=== PATIENT | male | born 1975 | race American Indian/Alaskan Native ===

== ENCOUNTER 2017-10-11 15:08 | Emergency (ER) | payer SELFPAY ==
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
[2017-10-11] MEDS ORDERED: NORCO 5/325 PO ONE (21:21)
[2017-10-11] MEDS ORDERED: FLEXERIL PO ONE (21:21)
[2017-10-11] MEDS ORDERED: DELTASONE PO ONE (21:21)
[2017-10-11 22:25] VITALS: BP 158/96
== END 2017-10-11 22:26 | disposition home or self-care (01) ==
LOC: ED 15:08
DX: M54.2 Cervicalgia (principal); M54.5 Low back pain; I10 Essential (primary) hypertension
CPT/HCPCS: 99282; J7512

== ENCOUNTER 2018-09-24 05:49 | Inpatient (IN) | payer SELFPAY ==
[2018-09-24] MEDS ORDERED: MORPHINE IV ONE (06:17)
[2018-09-24] MEDS ORDERED: NACL 0.9% 1000 ML 1,000 ML IV ONE ×3 (06:17→09:09)
[2018-09-24] MEDS ORDERED: ZOFRAN IV ONE (06:17)
--- NOTE | 2018-09-24 06:26 | Emergency Department Report ---
ED Abdominal Pain HPI - General Chief Complaint: Abdominal Pain Stated Complaint: ABDOMINAL PAIN Time Seen by Provider: 09/24/18 06:00 Source: patient, EMS Mode of arrival: Stretcher Limitations: No Limitations - History of Present Illness Initial Comments: 43-year-old male presents with complaint of diffuse abdominal pain since yesterday. Patient reports he was using cocaine and heroin just prior to onset of the pain. Patient reports associated nausea, vomiting, diarrhea as well. Patient denies fever. MD Complaint: abdominal pain -: Last night Location: diffuse Radiation: none Migration to: no migration Severity: moderate Quality: cramping, sharp Consistency: constant Improves With: nothing Worsens With: nothing Context: other (reports recent drug use) Associated Symptoms: nausea, vomiting, diarrhea. denies: fever - Related Data Home Medications Medication Instructions Recorded Confirmed Last Taken No Known Home Medications [No 09/24/18 09/24/18 Unknown Reported Home Medications] Allergies Allergy/AdvReac Type Severity Reaction Status Date / Time No Known Allergies Allergy Unverified 09/08/14 20:05 ED Review of Systems ROS: Stated complaint: ABDOMINAL PAIN Other details as noted in HPI Comment: All other systems reviewed and negative Constitutional: denies: fever Cardiovascular: denies: chest pain Gastrointestinal: abdominal pain, nausea, vomiting, diarrhea ED Past Medical Hx - Past Medical History Previous Medical History?: Yes Hx Hypertension: Yes Additional medical history: DRUG USE -COCCAINE & HEROINE - Surgical History Past Surgical History?: No - Social History Smoking Status: Current Every Day Smoker Substance Use Type: Cocaine, Heroin - Medications Home Medications: Home Medications Medication Instructions Recorded Confirmed Last Taken Type No Known Home Medications [No 09/24/18 09/24/18 Unknown History Reported Home Medications] ED Physical Exam - General Limitations: No Limitations General appearance: alert, in no apparent distress - Head Head exam: Present: atraumatic, normocephalic - Eye Eye exam: Present: normal appearance - ENT ENT exam: Present: mucous membranes moist - Neck Neck exam: Present: normal inspection - Respiratory Respiratory exam: Present: normal lung sounds bilaterally. Absent: respiratory distress - Cardiovascular Cardiovascular Exam: Present: regular rate, normal rhythm - GI/Abdominal GI/Abdominal exam: Present: soft, tenderness (moderate, diffuse). Absent: distended - Extremities Exam Extremities exam: Present: normal inspection - Neurological Exam Neurological exam: Present: alert, oriented X3 - Psychiatric Psychiatric exam: Present: normal affect, normal mood - Skin Skin exam: Present: warm, dry, intact, normal color ED Course Vital Signs 09/24/18 09/24/18 09/24/18 05:55 05:58 06:00 Temperature 96.9 F L Pulse Rate 81 77 76 Respiratory 16 10 L 10 L Rate Blood Pressure 177/103 164/102 Blood Pressure [Left] O2 Sat by Pulse 100 100 100 Oximetry 09/24/18 09/24/18 09/24/18 06:15 06:30 06:55 Temperature Pulse Rate 70 77 75 Respiratory 8 L 8 L Rate Blood Pressure 162/91 140/95 164/102 Blood Pressure [Left] O2 Sat by Pulse 93 96 Oximetry 09/24/18 09/24/18 09/24/18 07:00 07:10 07:20 Temperature Pulse Rate 75 78 76 Respiratory 6 L 7 L 6 L Rate Blood Pressure 130/81 130/81 129/85 Blood Pressure [Left] O2 Sat by Pulse 99 99 100 Oximetry 09/24/18 09/24/18 09/24/18 07:30 07:33 08:03 Temperature Pulse Rate 74 Respiratory 8 L 16 Rate Blood Pressure 128/85 144/87 Blood Pressure [Left] O2 Sat by Pulse 97 Oximetry 09/24/18 09/24/18 09/24/18 08:10 08:20 08:30 Temperature Pulse Rate Respiratory Rate Blood Pressure 144/87 122/90 142/90 Blood Pressure [Left] O2 Sat by Pulse 98 99 99 Oximetry 09/24/18 09/24/18 09/24/18 08:40 08:50 09:00 Temperature Pulse Rate Respiratory Rate Blood Pressure 128/85 117/78 123/96 Blood Pressure [Left] O2 Sat by Pulse 98 99 95 Oximetry 09/24/18 09/24/18 09/24/18 09:10 09:20 09:30 Temperature Pulse Rate Respiratory Rate Blood Pressure 142/90 142/90 143/94 Blood Pressure [Left] O2 Sat by Pulse 100 94 95 Oximetry 09/24/18 09/24/18 09/24/18 09:40 09:45 09:50 Temperature 98.5 F Pulse Rate 65 Respiratory 18 Rate Blood Pressure 117/78 135/90 Blood Pressure 135/90 [Left] O2 Sat by Pulse 94 99 99 Oximetry 09/24/18 10:00 Temperature Pulse Rate Respiratory Rate Blood Pressure 140/91 Blood Pressure [Left] O2 Sat by Pulse 97 Oximetry - Consultations Consultation #1: 09/24/18 09:07 Dr Coatse at bedside. No need to take pt to OR emergently. States willl f/u on CT w/ oral contrast. Wants 2L more NS. ED Medical Decision Making - Lab Data Result diagrams: 09/24/18 06:43 09/24/18 09:11 - EKG Data -: EKG Interpreted by Me EKG shows normal: sinus rhythm, axis, intervals, QRS complexes, ST-T waves Rate: normal - EKG Data Interpretation: nonspecific ST-T wave leslie - Radiology Data Radiology results: report reviewed, image reviewed - Medical Decision Making 43-year-old male with abdominal pain, nausea or vomiting after using IV heroin and cocaine. Vital signs unremarkable. Labs normal except for hypokalemia, which was replaced with PO potassium. CT scan suspicious for free fluid in the abdomen, however no free air or obvious perforation noted. Spoke with Dr. Coates, who came to evaluate patient. Would like repeat CT with PO contrast. This patient does not need to go to the OR emergently. Requests 2 additional liters of normal saline boluses and admitted to hospitalist service. Patient is much improved since he presented to ED. Already been given 1 L bolus of IV fluid, 4 mg of morphine and 4 mg of Zofran. Spoke with hospitalist, pt to be admitted to Dr Taylor. - Differential Diagnosis gastritis, ischemic bowel, perforation Critical care attestation.: If time is entered above; I have spent that time in minutes in the direct care of this critically ill patient, excluding procedure time. ED Disposition Clinical Impression: Hypokalemia, Drug abuse, Ascites Abdominal pain Qualifiers: Abdominal location: generalized Qualified Code(s): R10.84 - Generalized abdominal pain Disposition: OP ADMIT IP TO THIS HOSP Is pt being admited?: Yes Condition: Stable Time of Disposition: 09:00
[2018-09-24 07:08] LABS: Basophils % (Auto) 0.2 % (0.0-1.8); Eosinophils # (Auto) 0.1 K/mm3 (0.0-0.4); Eosinophils % (Auto) 0.9 % (0.0-4.3); Hematocrit 47.8 % (35.5-45.6); Hemoglobin 15.4 gm/dl (11.8-15.2); Lymphocytes # (Auto) 1.6 K/mm3 (1.2-5.4); Lymphocytes % (Auto) 18.1 % (13.4-35.0); Mean Corpuscular HGB Conc 32 % (32-34); Mean Corpuscular Volume 80 fl (84-94); Monocytes # (Auto) 0.7 K/mm3 (0.0-0.8); Monocytes % (Auto) 8.3 % (0.0-7.3); Platelet Count 289 K/mm3 (140-440); Red Blood Count 5.99 M/mm3 (3.65-5.03); Red Cell Distribution Width 14.3 % (13.2-15.2)
[2018-09-24 07:13] LABS: Alanine Aminotransferase 17 units/L (7-56); Albumin 3.9 g/dL (3.9-5); BUN/Creatinine Ratio 16; Blood Urea Nitrogen 11 mg/dL (9-20); Calcium 8.9 mg/dL (8.4-10.2); Hemolysis Index 13; Lipase 12 units/L (13-60)
[2018-09-24 07:15] LABS: Mean Corpuscular Hemoglobin 26 pg (28-32)
[2018-09-24] MEDS ORDERED: K-DUR PO ONE (07:31)
--- NOTE | 2018-09-24 08:22 | Cat Scan Report ---
CT ABDOMEN PELVIS WITH CONTRAST: HISTORY: abdominal pain. COMPARISON: None. TECHNIQUE: Helical CT in 1.25mm intervals following IV contrast. Sagittal and coronal reconstructions. FINDINGS: Lung bases: Normal. Liver: Normal. Biliary system: Normal. Pancreas: Normal. Spleen: Normal. Kidneys/ureters/bladder: Normal. Adrenal glands: Normal. Aorta: Normal. Intestines: There is no oral contrast which limits evaluation of the GI system. There is a small focal abnormality measuring 1.9 cm medial to the descending duodenum on image 73, series 2. The significance of this is unclear but it may represent a focal ulceration or possibly a duodenal diverticulum. I cannot entirely exclude a penetrating ulcer. There is no evidence for large free air or bowel obstruction. Appendix: Normal. Ascites: There is small to medium fluid throughout the abdomen. Small fluid is identified adjacent to the liver, spleen, paracolic gutters and pelvis. The ascites measures approximately 20 Hounsfield units. Adenopathy: None. Musculoskeletal: Moderate degenerative disc disease at L5-S1. No fracture or suspicious bony lesion. IMPRESSION: Small to medium free fluid is identified throughout the abdomen. Slightly abnormal appearance of the duodenum as outlined above. Please correlate with the patient's clinical presentation. These findings were discussed with Dr. Tejeda at 0815 hours.
--- NOTE | 2018-09-24 09:08 | History and Physical Report ---
History of Present Illness Date of examination: 09/24/18 Date of admission: 09/24/18 Chief complaint: Abdominal pain/nausea/vomiting History of present illness: 43-year-old male with significant past medical history of hypertension not on any medications , substance abuse tobacco cocaine heroine , presented to the emergency room with abdominal pain since yesterday associated with nausea vomiting , reports that symptoms started after using cocaine and heroin. No history of consuming any new foods, no history of travel, no fever No similar sharp symptoms since the family members. Denies hematemesis or melena, no GI problems in the past Initial workup is consistent with severe hypokalemia CT abdomen and pelvis fluid in the abdomen ,no acute abnormalities noted, Past History Past Medical History: hypertension Past Surgical History: No surgical history Social history: smoking, other (cocaine, Heroin). denies: alcohol abuse Family history: hypertension Medications and Allergies Allergies Allergy/AdvReac Type Severity Reaction Status Date / Time No Known Allergies Allergy Unverified 09/08/14 20:05 Home Medications Medication Instructions Recorded Confirmed Last Taken Type No Known Home Medications [No 09/24/18 09/24/18 Unknown History Reported Home Medications] Review of Systems Constitutional: no weight loss, no weight gain Cardiovascular: no chest pain, no orthopnea Respiratory: no cough, no shortness of breath Gastrointestinal: abdominal pain, nausea, vomiting, no diarrhea, no constipation Genitourinary Male: no dysuria, no hematuria Musculoskeletal: no neck stiffness, no myalgias Integumentary: no rash, no lesions Neurological: no weakness, no parathesias Psychiatric: no anxiety, no depression Endocrine: no cold intolerance, no heat intolerance Hematologic/Lymphatic: no easy bruising, no easy bleeding Allergic/Immunologic: no urticaria, no allergic rhinitis Exam - Constitutional Vitals: Temp Pulse Resp BP Pulse Ox 96.9 F L 77 16 140/95 96 09/24/18 05:55 09/24/18 06:30 09/24/18 07:33 09/24/18 06:30 09/24/18 06:30 General appearance: Present: no acute distress, well-nourished - EENT Eyes: Present: PERRL, EOM intact - Neck Neck: Present: supple, normal ROM - Respiratory Respiratory effort: normal Respiratory: bilateral: diminished, negative: rales, rhonchi, wheezing - Cardiovascular Rhythm: regular Heart Sounds: Present: S1 & S2 - Extremities Extremities: no ischemia, No edema - Abdominal General gastrointestinal: Present: soft, non-tender, non-distended, normal bowel sounds - Integumentary Integumentary: Present: clear, warm - Musculoskeletal Musculoskeletal: strength equal bilaterally - Psychiatric Psychiatric: appropriate mood/affect, cooperative - Neurologic Neurologic: CNII-XII intact, moves all extremities Results - Labs CBC & Chem 7: 09/24/18 06:43 09/24/18 09:11 Labs: Abnormal lab results 09/24/18 09/24/18 Range/Units 06:37 06:43 RBC 5.99 H (3.65-5.03) M/mm3 Hgb 15.4 H (11.8-15.2) gm/dl Hct 47.8 H (35.5-45.6) % MCV 80 L (84-94) fl MCH 26 L (28-32) pg [place] % (Auto) 8.3 H (0.0-7.3) % Seg Neutrophils % 72.5 H (40.0-70.0) % Sodium 136 L (137-145) mmol/L Potassium 2.9 L* (3.6-5.0) mmol/L Chloride 93.2 L (98-107) mmol/L Creatinine 0.7 L (0.8-1.5) mg/dL Glucose 133 H (75-100) mg/dL Lipase 12 L (13-60) units/L Assessment and Plan --Abdominal pain; with nausea and vomiting CT abdomen no acute abnormalities noted Symptomatic management, nothing by mouth, IV fluids Antiemetics, pain medications Surgery already seen the patient, CT abdomen and pelvis with contrast --Severe hypokalemia; replaced per protocol Follow electrolytes, check magnesium --Ongoing tobacco use; smoking cessation Nicotine patch as needed --Substance abuse; cocaine.Heroin Advised to quit recreational drug use -- DVT: prophylaxis SCDs; Monitor the patient and adjust management as needed Plan of Care reviewed with the patient and his nurse
--- NOTE | 2018-09-24 09:27 | Consultation ---
History of Present Illness Consult date: 09/24/18 Reason for consult: abdominal pain Requesting physician: LAVONNE TEJEDA Chief complaint: abdominal pain - History of present illness History of present illness: 43yo M with a history of heroin and cocaine abuse presents to the emergency room with an acute onset of abdominal pain since last night after using heroin and cocaine. He reports this is the exact same situation had about a year ago when he went to [facility] for help. He did not stay for the complete evaluation. Once his pain was under control, he left against medical advice. He reports this is the exact same situation as last year. He has had nausea and vomiting. Has had diarrhea. Denies any hematemesis, bright red blood per rectum, melena, black stools, coffee ground emesis. Denies any history of heartburn or reflux. His pain is better now. His nausea has resolved. He is thirsty and would like to eat. Denies any back pain or difficulty breathing. Past History Past Medical History: hypertension (does not take any meds) Past Surgical History: No surgical history Social history: smoking (1ppd), IV drug use, other (cocaine and heroin). denies: alcohol abuse, prescription drug abuse Family history: no significant family history Medications and Allergies Allergies Allergy/AdvReac Type Severity Reaction Status Date / Time No Known Allergies Allergy Unverified 09/08/14 20:05 Home Medications Medication Instructions Recorded Confirmed Last Taken Type No Known Home Medications [No 09/24/18 09/24/18 Unknown History Reported Home Medications] Active Meds: Active Medications Famotidine (Pepcid) 20 mg IV BID CECIL Hydralazine HCl (Apresoline) 10 mg IV Q4HR PRN PRN Reason: Hypertension Sodium Chloride (Nacl 0.9% 1000 Ml) 1,000 mls @ 125 mls/hr IV DIRECT CECIL Sodium Chloride (Nacl 0.9% 1000 Ml) 1,000 mls @ 999 mls/hr IV BOLUS ONE Stop: 09/24/18 10:08 Sodium Chloride (Nacl 0.9% 1000 Ml) 1,000 mls @ 999 mls/hr IV BOLUS ONE Stop: 09/24/18 10:09 Morphine Sulfate (Morphine) 2 mg IV Q4H PRN PRN Reason: Pain, Moderate (4-6) Nicotine (Habitrol) 14 mg TD QDAY CECIL Review of Systems - Constitutional no fever, no chills, no sweats, no chronic headaches, no chronic pain - Cardiovascular no chest pain, no rapid/irregular heart beat, no shortness of breath - Respiratory no cough - Gastrointestinal abdominal pain, nausea, vomiting, diarrhea, no hematemesis, no coffee ground emesis, no BRBPR, no melena, no hematochezia, no heartburn, no dyspepsia/bloating - Genitourinary no flank pain - Muskuloskeletal no low back pain - Integumentary no sores, no wounds Exam Vital Signs Temp Pulse Resp BP Pulse Ox 96.9 F L 81 16 177/103 100 09/24/18 05:55 09/24/18 05:55 09/24/18 05:55 09/24/18 05:55 09/24/18 05:55 - General physical appearance Positive: no distress, no pain, other (Able to raise head up without difficulty. Calm. Does not appear ill) - Eyes Positive: normal occular movement. Negative: icteric - Neck Positive: trachea midline - Respiratory Positive: normal expansion, normal respiratory effort, clear to auscultation - Cardiovascular Rhythm: regular - Extremities Extremities: No edema, normal temperature, normal color - Abdomen Abdomen: Present: soft, bowel sounds normal, other (no pelvic shake tenderness). Absent: tender, distended, masses, rebound, guarding, rigid, wound, surgical scars Hernia: none - Integumentary no rash, no growths, no abnormal pigmentation - Neurologic Neurologic: alert and oriented to time, place and person, motor strength and sensation are grossly intact - Psychiatric Psychiatric: appropriate mood/affect, intact judgment & insight Results - Labs 09/24/18 06:43 09/24/18 06:37 Abnormal lab results 09/24/18 09/24/18 Range/Units 06:37 06:43 RBC 5.99 H (3.65-5.03) M/mm3 Hgb 15.4 H (11.8-15.2) gm/dl Hct 47.8 H (35.5-45.6) % MCV 80 L (84-94) fl MCH 26 L (28-32) pg [place] % (Auto) 8.3 H (0.0-7.3) % Seg Neutrophils % 72.5 H (40.0-70.0) % Sodium 136 L (137-145) mmol/L Potassium 2.9 L* (3.6-5.0) mmol/L Chloride 93.2 L (98-107) mmol/L Creatinine 0.7 L (0.8-1.5) mg/dL Glucose 133 H (75-100) mg/dL Lipase 12 L (13-60) units/L Diabetes panel 09/24/18 Range/Units 06:37 Sodium 136 L (137-145) mmol/L Potassium 2.9 L* (3.6-5.0) mmol/L Chloride 93.2 L (98-107) mmol/L Carbon Dioxide 29 (22-30) mmol/L BUN 11 (9-20) mg/dL Creatinine 0.7 L (0.8-1.5) mg/dL Glucose 133 H (75-100) mg/dL Calcium 8.9 (8.4-10.2) mg/dL AST 20 (5-40) units/L ALT 17 (7-56) units/L Alkaline Phosphatase 51 (35-129) units/L Total Protein 6.9 (6.3-8.2) g/dL Albumin 3.9 (3.9-5) g/dL Calcium panel 09/24/18 Range/Units 06:37 Calcium 8.9 (8.4-10.2) mg/dL Albumin 3.9 (3.9-5) g/dL Pituitary panel 09/24/18 Range/Units 06:37 Sodium 136 L (137-145) mmol/L Potassium 2.9 L* (3.6-5.0) mmol/L Chloride 93.2 L (98-107) mmol/L Carbon Dioxide 29 (22-30) mmol/L BUN 11 (9-20) mg/dL Creatinine 0.7 L (0.8-1.5) mg/dL Glucose 133 H (75-100) mg/dL Calcium 8.9 (8.4-10.2) mg/dL Adrenal panel 09/24/18 Range/Units 06:37 Sodium 136 L (137-145) mmol/L Potassium 2.9 L* (3.6-5.0) mmol/L Chloride 93.2 L (98-107) mmol/L Carbon Dioxide 29 (22-30) mmol/L BUN 11 (9-20) mg/dL Creatinine 0.7 L (0.8-1.5) mg/dL Glucose 133 H (75-100) mg/dL Calcium 8.9 (8.4-10.2) mg/dL Total Bilirubin 0.60 (0.1-1.2) mg/dL AST 20 (5-40) units/L ALT 17 (7-56) units/L Alkaline Phosphatase 51 (35-129) units/L Total Protein 6.9 (6.3-8.2) g/dL Albumin 3.9 (3.9-5) g/dL - Imaging CT scan - abdomen: report reviewed, image reviewed CT scan - pelvis: report reviewed, image reviewed Assessment and Plan - Patient Problems (1) Abdominal pain Current Visit: Yes Status: Acute Qualifiers: Abdominal location: generalized Qualified Code(s): R10.84 - Generalized abdominal pain Plan to address problem: Pt stable. Patient does not appear acutely ill. He does not have an acute abdomen. He reports that he is getting better. Dr. Tejeda in the emergency department also agreed that patient looks better since arrival. Based on the report of the CAT scan, I think it would be prudent to repeat CT scan with oral contrast. Despite the report of some free fluid with [place] units of 20, his abdominal exam is not consistent with blood in the abdomen. I think he may have had an acute reaction to the heroin and cocaine like one year ago. He is also very dehydrated. I have asked Dr. Tejeda to give him another 2 L of saline. No need for urgent operation at this moment. Rec: 1) repeat CT with oral contrast 2) keep NPO for now until CT done and reassessment later this morning 3) Rehydrate Will follow along. Please call with questions. time=45min
[2018-09-24] MEDS: PEPCID IV SCH ×2 (09:36→21:07)
[2018-09-24] MEDS: HABITROL TD SCH (11:37)
[2018-09-24] MEDS: MORPHINE IV PRN ×2 (12:37→20:08)
--- NOTE | 2018-09-24 14:55 | Cat Scan Report ---
FINAL REPORT EXAM: CT ABDOMEN PELVIS WO CON HISTORY: abnormal CT, abdominal pain TECHNIQUE: Axial images were performed from the lung bases to the pubic symphysis. Multiplanar refor mats are performed on the acquisition scanner. Total exam DLP 469.12 mGy-cm Comparison: Earlier same day at 7:36 a.m. reporting small to medium ascites and irregularity of the medial duodenum, possibly an ulcer or diverticulum image 73 series 2 measuring 1.9 centimeters FINDINGS: Oral contrast was administered and images were obtained at 12 o'clock. Mild basal atelectasis. The IV contrast is present in the renal collecting system and urinary bladder. Previously identified air and debris level medial to the duodenum is suboptimally visualized on the c urrent exam due to lack of IV and oral contrast to gather. There is an air bubble medial to the duode num a with mild motion artifact. Review of the previous exam with the current exam is suggestive of a debris-filled duodenal diverticulum with no inflammation around it. There is a lack of abdominal fat in the peritoneum to distinguish the organs. Contrast is present to the rectum. Previous exam demonstrated fluid filled mildly hyperemic rectum and hyperemic slightly th ick-walled small bowel. Normal appearance of the liver. Current Jeanette the small bowel is not distended with contrast proximally but is distended distally. There is again noted mild ascites. No free air. No evidence for bowel obstruction. The prostate is mildly enlarged. There is lumbosacral junction degenerative disc disease. IMPRESSION: Oral contrasted images were performed since this morning's exam to evaluate for air and debris level medial to the duodenum. 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 Persistent ascites. Previous exam is suggestive of inflammation of the proximal small bowel and possibly the rectum. Cons ider inflammatory bowel disease. No pneumatosis or free air. Limited information on the current exam.
--- NOTE | 2018-09-24 15:02 | Progress Note ---
Assessment and Plan - Patient Problems (1) Abdominal pain Current Visit: Yes Status: Acute Qualifiers: Abdominal location: generalized Qualified Code(s): R10.84 - Generalized abdominal pain Plan to address problem: Pt stable. Vital signs remain stable. Clinically patient looks a little better than this morning. Abdomen remains benign. I reviewed the repeat CT scan in detail with Dr. Fried. There is a question of a small abnormality near what we presume to be a duodenal diverticulum. There are no clear signs of any inflammatory change. There is no obvious leakage of contrast. I discussed this with the patient in great detail. My concern that even though he looks well and his labs don't suggest any abnormality, I still have this abnormality on CT scan. Patient is very hungry and wants to eat. As a compromise, especially in light of the fact that he looks better, his abdomen is benign, his vital signs are normal, etc., I will order a clear liquid diet with a few crackers. If the labs and exam remain normal tomorrow, I will advance the diet. If there's any cause for concern, I will order an upper G.I. study. This was the recommendation from Dr. Fried. All this was also discussed with Dr. Taylor. Will follow along. Please call with questions. time=10min Subjective Date of service: 09/24/18 Patient Reports: Positive: feels better, pain is less, diarrhea (after drinking contrast). Negative: nausea, vomiting Objective Vital Signs - 12hr 09/24/18 09/24/18 09/24/18 05:55 05:58 06:00 Temperature 96.9 F L Pulse Rate 81 77 76 Respiratory 16 10 L 10 L Rate Blood Pressure 177/103 164/102 Blood Pressure [Left] O2 Sat by Pulse 100 100 100 Oximetry 09/24/18 09/24/18 09/24/18 06:15 06:30 06:55 Temperature Pulse Rate 70 77 75 Respiratory 8 L 8 L Rate Blood Pressure 162/91 140/95 164/102 Blood Pressure [Left] O2 Sat by Pulse 93 96 Oximetry 09/24/18 09/24/18 09/24/18 07:00 07:10 07:20 Temperature Pulse Rate 75 78 76 Respiratory 6 L 7 L 6 L Rate Blood Pressure 130/81 130/81 129/85 Blood Pressure [Left] O2 Sat by Pulse 99 99 100 Oximetry 09/24/18 09/24/18 09/24/18 07:30 07:33 08:03 Temperature Pulse Rate 74 Respiratory 8 L 16 Rate Blood Pressure 128/85 144/87 Blood Pressure [Left] O2 Sat by Pulse 97 Oximetry 09/24/18 09/24/18 09/24/18 08:10 08:20 08:30 Temperature Pulse Rate Respiratory Rate Blood Pressure 144/87 122/90 142/90 Blood Pressure [Left] O2 Sat by Pulse 98 99 99 Oximetry 09/24/18 09/24/18 09/24/18 08:40 08:50 09:00 Temperature Pulse Rate Respiratory Rate Blood Pressure 128/85 117/78 123/96 Blood Pressure [Left] O2 Sat by Pulse 98 99 95 Oximetry 09/24/18 09/24/18 09/24/18 09:10 09:20 09:30 Temperature Pulse Rate Respiratory Rate Blood Pressure 142/90 142/90 143/94 Blood Pressure [Left] O2 Sat by Pulse 100 94 95 Oximetry 09/24/18 09/24/18 09/24/18 09:40 09:45 09:50 Temperature 98.5 F Pulse Rate 65 Respiratory 18 Rate Blood Pressure 117/78 135/90 Blood Pressure 135/90 [Left] O2 Sat by Pulse 94 99 99 Oximetry 09/24/18 09/24/18 10:00 12:37 Temperature 98.1 F Pulse Rate 67 Respiratory 16 Rate Blood Pressure 140/91 116/81 Blood Pressure [Left] O2 Sat by Pulse 97 100 Oximetry - General physical appearance no distress, no pain, other (looks better) - Respiratory normal expansion, normal respiratory effort - Abdomen soft, not tender, bowel sounds normal, not distended, not rebound, not guarding, not rigid - Integumentary no rash, no growths, no abnormal pigmentation - Psychiatric oriented to time, oriented to person, oriented to place, speech is normal, memory intact - Labs 09/24/18 06:43 09/24/18 09:11 Diabetes panel 09/24/18 09/24/18 Range/Units 06:37 09:11 Sodium 136 L (137-145) mmol/L Potassium 2.9 L* 3.7 D (3.6-5.0) mmol/L Chloride 93.2 L (98-107) mmol/L Carbon Dioxide 29 (22-30) mmol/L BUN 11 (9-20) mg/dL Creatinine 0.7 L (0.8-1.5) mg/dL Glucose 133 H (75-100) mg/dL Calcium 8.9 (8.4-10.2) mg/dL AST 20 (5-40) units/L ALT 17 (7-56) units/L Alkaline Phosphatase 51 (35-129) units/L Total Protein 6.9 (6.3-8.2) g/dL Albumin 3.9 (3.9-5) g/dL Calcium panel 09/24/18 Range/Units 06:37 Calcium 8.9 (8.4-10.2) mg/dL Albumin 3.9 (3.9-5) g/dL Pituitary panel 09/24/18 09/24/18 Range/Units 06:37 09:11 Sodium 136 L (137-145) mmol/L Potassium 2.9 L* 3.7 D (3.6-5.0) mmol/L Chloride 93.2 L (98-107) mmol/L Carbon Dioxide 29 (22-30) mmol/L BUN 11 (9-20) mg/dL Creatinine 0.7 L (0.8-1.5) mg/dL Glucose 133 H (75-100) mg/dL Calcium 8.9 (8.4-10.2) mg/dL Adrenal panel 09/24/18 09/24/18 Range/Units 06:37 09:11 Sodium 136 L (137-145) mmol/L Potassium 2.9 L* 3.7 D (3.6-5.0) mmol/L Chloride 93.2 L (98-107) mmol/L Carbon Dioxide 29 (22-30) mmol/L BUN 11 (9-20) mg/dL Creatinine 0.7 L (0.8-1.5) mg/dL Glucose 133 H (75-100) mg/dL Calcium 8.9 (8.4-10.2) mg/dL Total Bilirubin 0.60 (0.1-1.2) mg/dL AST 20 (5-40) units/L ALT 17 (7-56) units/L Alkaline Phosphatase 51 (35-129) units/L Total Protein 6.9 (6.3-8.2) g/dL Albumin 3.9 (3.9-5) g/dL
[2018-09-24] MEDS: NACL 0.9% 1000 ML 1,000 ML IV SCH (16:21)
[2018-09-25] MEDS: MORPHINE IV PRN ×4 (00:42→13:13)
[2018-09-25] MEDS: NACL 0.9% 1000 ML 1,000 ML IV SCH (05:08)
[2018-09-25 05:55] LABS: Basophils % (Auto) 0.2 % (0.0-1.8); Eosinophils # (Auto) 0.4 K/mm3 (0.0-0.4); Hematocrit 37.9 % (35.5-45.6); Hemoglobin 12.5 gm/dl (11.8-15.2); Lymphocytes # (Auto) 2.7 K/mm3 (1.2-5.4); Lymphocytes % (Auto) 44.5 % (13.4-35.0); Mean Corpuscular HGB Conc 33 % (32-34); Mean Corpuscular Hemoglobin 26 pg (28-32); Mean Corpuscular Volume 80 fl (84-94); Monocytes # (Auto) 0.5 K/mm3 (0.0-0.8); Monocytes % (Auto) 7.9 % (0.0-7.3); Platelet Count 221 K/mm3 (140-440); Red Blood Count 4.75 M/mm3 (3.65-5.03); Red Cell Distribution Width 14.3 % (13.2-15.2)
[2018-09-25 06:18] LABS: Alanine Aminotransferase 15 units/L (7-56); Albumin 3.3 g/dL (3.9-5); BUN/Creatinine Ratio 7; Blood Urea Nitrogen 7 mg/dL (9-20); Calcium 8.4 mg/dL (8.4-10.2); Hemolysis Index 8
[2018-09-25] MEDS: HABITROL TD SCH (09:05)
[2018-09-25] MEDS: PEPCID IV SCH ×2 (09:05→21:26)
--- NOTE | 2018-09-25 09:09 | Progress Note ---
Assessment and Plan - Patient Problems (1) Abdominal pain Current Visit: Yes Status: Acute Qualifiers: Abdominal location: generalized Qualified Code(s): R10.84 - Generalized abdominal pain Plan to address problem: Pt stable. Vital signs remain stable. Clinically patient looks a little better than this morning. Abdomen remains benign. Will advance diet to soft diet. d/c IVF. Encourage ambulation. Labs in AM. Did have one episode of severe pain last night. Residual effect of cocaine? Would expect labs,vitals, and clinical appearance to look worse if he were leaking from duodenum. He looks better and objective data is normal. Will continue to observe. Will follow along. Please call with questions. time=10min Subjective Date of service: 09/25/18 Patient Reports: Positive: feels better, pain is less (still does have some pain, but much less than admission. Had one episode of pain last night that was as severe as admission), tolerating liquids well. Negative: nausea, vomiting Objective Vital Signs - 12hr 09/24/18 09/25/18 09/25/18 22:00 00:01 05:02 Temperature 98.1 F 98.1 F Pulse Rate 63 67 Respiratory 20 18 Rate Blood Pressure 138/83 178/111 O2 Sat by Pulse 97 97 98 Oximetry - General physical appearance no distress, no pain, other (looks better today) - Eyes normal occular movement - Respiratory normal expansion, normal respiratory effort - Abdomen soft, tender (mild in midline. decreases with contraction of abdominal wall. Sides are non-tender. ), bowel sounds normal, not distended, not rebound, not guarding, not rigid, other (no pelvic shake tenderness) - Integumentary no rash, no growths, no abnormal pigmentation - Psychiatric oriented to time, oriented to person, oriented to place, speech is normal, memory intact - Labs 09/25/18 05:19 09/25/18 05:19 Diabetes panel 09/24/18 09/25/18 Range/Units 09:11 05:19 Sodium 142 (137-145) mmol/L Potassium 3.7 D 3.5 L (3.6-5.0) mmol/L Chloride 103.8 (98-107) mmol/L Carbon Dioxide 27 (22-30) mmol/L BUN 7 L (9-20) mg/dL Creatinine 1.0 (0.8-1.5) mg/dL Glucose 87 (75-100) mg/dL Calcium 8.4 (8.4-10.2) mg/dL AST 19 (5-40) units/L ALT 15 (7-56) units/L Alkaline Phosphatase 45 (35-129) units/L Total Protein 6.3 (6.3-8.2) g/dL Albumin 3.3 L (3.9-5) g/dL Calcium panel 09/25/18 Range/Units 05:19 Calcium 8.4 (8.4-10.2) mg/dL Phosphorus 2.80 (2.5-4.5) mg/dL Albumin 3.3 L (3.9-5) g/dL Pituitary panel 09/24/18 09/25/18 Range/Units 09:11 05:19 Sodium 142 (137-145) mmol/L Potassium 3.7 D 3.5 L (3.6-5.0) mmol/L Chloride 103.8 (98-107) mmol/L Carbon Dioxide 27 (22-30) mmol/L BUN 7 L (9-20) mg/dL Creatinine 1.0 (0.8-1.5) mg/dL Glucose 87 (75-100) mg/dL Calcium 8.4 (8.4-10.2) mg/dL Adrenal panel 09/24/18 09/25/18 Range/Units 09:11 05:19 Sodium 142 (137-145) mmol/L Potassium 3.7 D 3.5 L (3.6-5.0) mmol/L Chloride 103.8 (98-107) mmol/L Carbon Dioxide 27 (22-30) mmol/L BUN 7 L (9-20) mg/dL Creatinine 1.0 (0.8-1.5) mg/dL Glucose 87 (75-100) mg/dL Calcium 8.4 (8.4-10.2) mg/dL Total Bilirubin 0.50 (0.1-1.2) mg/dL AST 19 (5-40) units/L ALT 15 (7-56) units/L Alkaline Phosphatase 45 (35-129) units/L Total Protein 6.3 (6.3-8.2) g/dL Albumin 3.3 L (3.9-5) g/dL
--- NOTE | 2018-09-25 10:18 | Progress Note ---
Assessment and Plan Assessment and plan: --Abdominal pain; with nausea and vomiting CT abdomen no acute abnormalities noted Symptomatic management, nothing by mouth, IV fluids Antiemetics, pain medications Surgery already seen the patient, CT abdomen and pelvis with contrast --Severe hypokalemia;improved K level 3.5 today,give 40 meq po x1 Follow electrolytes, check magnesium --Ongoing tobacco use; smoking cessation Nicotine patch as needed --Substance abuse; cocaine.Heroin Advised to quit recreational drug use -- DVT: prophylaxis SCDs; Monitor the patient and adjust management as needed Plan of Care reviewed with the patient and his nurse History Interval history: Patient seen and examied,med records reviewed c/o mild abdominal pain,no nausea,vomitings Asks for more pain medication Vital signs noted Hospitalist Physical - Constitutional Vitals: Temp Pulse Resp BP Pulse Ox 98.1 F 67 18 178/111 98 09/25/18 05:02 09/25/18 05:02 09/25/18 05:02 09/25/18 05:02 09/25/18 05:02 General appearance: Present: no acute distress, well-nourished - EENT Eyes: Present: PERRL, EOM intact - Neck Neck: Present: supple, normal ROM - Respiratory Respiratory effort: normal Respiratory: negative: rales, rhonchi, wheezing - Cardiovascular Rhythm: regular Heart Sounds: Present: S1 & S2 - Extremities Extremities: no ischemia, No edema - Abdominal General gastrointestinal: soft, non-tender, non-distended, normal bowel sounds - Integumentary Integumentary: Present: clear, warm - Psychiatric Psychiatric: appropriate mood/affect, cooperative - Neurologic Neurologic: CNII-XII intact, moves all extremities Results - Labs CBC & Chem 7: 09/25/18 05:19 09/25/18 05:19 Labs: Laboratory Last Values WBC 6.1 K/mm3 (4.5-11.0) 09/25/18 05:19 RBC 4.75 M/mm3 (3.65-5.03) 09/25/18 05:19 Hgb 12.5 gm/dl (11.8-15.2) 09/25/18 05:19 Hct 37.9 % (35.5-45.6) D 09/25/18 05:19 MCV 80 fl (84-94) L 09/25/18 05:19 MCH 26 pg (28-32) L 09/25/18 05:19 MCHC 33 % (32-34) 09/25/18 05:19 RDW 14.3 % (13.2-15.2) 09/25/18 05:19 Plt Count 221 K/mm3 (140-440) 09/25/18 05:19 Lymph % (Auto) 44.5 % (13.4-35.0) H 09/25/18 05:19 [place] % (Auto) 7.9 % (0.0-7.3) H 09/25/18 05:19 Eos % (Auto) 6.0 % (0.0-4.3) H 09/25/18 05:19 Baso % (Auto) 0.2 % (0.0-1.8) 09/25/18 05:19 Lymph # 2.7 K/mm3 (1.2-5.4) 09/25/18 05:19 [place] # 0.5 K/mm3 (0.0-0.8) 09/25/18 05:19 Eos # 0.4 K/mm3 (0.0-0.4) 09/25/18 05:19 Baso # 0.0 K/mm3 (0.0-0.1) 09/25/18 05:19 Seg Neutrophils % 41.4 % (40.0-70.0) 09/25/18 05:19 Seg Neutrophils # 2.5 K/mm3 (1.8-7.7) 09/25/18 05:19 Sodium 142 mmol/L (137-145) 09/25/18 05:19 Potassium 3.5 mmol/L (3.6-5.0) L 09/25/18 05:19 Chloride 103.8 mmol/L (98-107) 09/25/18 05:19 Carbon Dioxide 27 mmol/L (22-30) 09/25/18 05:19 Anion Gap 15 mmol/L 09/25/18 05:19 BUN 7 mg/dL (9-20) L 09/25/18 05:19 Creatinine 1.0 mg/dL (0.8-1.5) 09/25/18 05:19 Estimated GFR > 60 ml/min 09/25/18 05:19 BUN/Creatinine Ratio 7 % 09/25/18 05:19 Glucose 87 mg/dL (75-100) 09/25/18 05:19 Calcium 8.4 mg/dL (8.4-10.2) 09/25/18 05:19 Phosphorus 2.80 mg/dL (2.5-4.5) 09/25/18 05:19 Magnesium 1.80 mg/dL (1.7-2.3) 09/25/18 05:19 Total Bilirubin 0.50 mg/dL (0.1-1.2) 09/25/18 05:19 AST 19 units/L (5-40) 09/25/18 05:19 ALT 15 units/L (7-56) 09/25/18 05:19 Alkaline Phosphatase 45 units/L (35-129) 09/25/18 05:19 Total Protein 6.3 g/dL (6.3-8.2) 09/25/18 05:19 Albumin 3.3 g/dL (3.9-5) L 09/25/18 05:19 Albumin/Globulin Ratio 1.1 % 09/25/18 05:19 Lipase 12 units/L (13-60) L 09/24/18 06:37
[2018-09-25] MEDS ORDERED: K-DUR PO ONE (11:00)
[2018-09-25] MEDS ORDERED: MORPHINE IV PRN (15:32)
--- NOTE | 2018-09-25 15:32 | Progress Note ---
Assessment and Plan - Patient Problems (1) Abdominal pain Current Visit: Yes Status: Acute Qualifiers: Abdominal location: generalized Qualified Code(s): R10.84 - Generalized abdominal pain Plan to address problem: Pt stable. Routine recheck. Pt appears very comfortable and does not show any signs of illness. Exam was fairly unremarkable. The report that the bowel movement made him feel better makes me think that his pain was more constipation than duodenal leak. As for his pain med use, I think he is using it as a substitute for his addition. When we discussed that he won't have this IV medicine available when he goes home, he replied that he won't need it. He will check into rehab which will take care of that issue. Plan is to observe him today and recheck his labs and exam tomorrow. If everything remains normal, d/c home tomorrow. I explained this to the patient. Will follow along. Please call with questions. time=10min Subjective Date of service: 09/25/18 Patient Reports: Positive: still having pain (Able to eat a small amount of lunch. After 1 hour, had mid-abdominal discomfort that improved with bowel movement. ). Negative: nausea, vomiting Objective Vital Signs - 12hr 09/25/18 05:02 Temperature 98.1 F Pulse Rate 67 Respiratory 18 Rate Blood Pressure 178/111 O2 Sat by Pulse 98 Oximetry - General physical appearance no distress, no pain, other (looks completely well. Watching TV without any sig ns of discomfort or illness) - Eyes normal occular movement - Respiratory normal expansion, normal respiratory effort - Abdomen soft, tender (mild in epigastric area), not distended, not masses, not guarding, not rigid - Integumentary no rash, no growths, no abnormal pigmentation - Psychiatric oriented to time, oriented to person, oriented to place, speech is normal, memory intact - Labs 09/25/18 05:19 09/25/18 05:19 Diabetes panel 09/25/18 Range/Units 05:19 Sodium 142 (137-145) mmol/L Potassium 3.5 L (3.6-5.0) mmol/L Chloride 103.8 (98-107) mmol/L Carbon Dioxide 27 (22-30) mmol/L BUN 7 L (9-20) mg/dL Creatinine 1.0 (0.8-1.5) mg/dL Glucose 87 (75-100) mg/dL Calcium 8.4 (8.4-10.2) mg/dL AST 19 (5-40) units/L ALT 15 (7-56) units/L Alkaline Phosphatase 45 (35-129) units/L Total Protein 6.3 (6.3-8.2) g/dL Albumin 3.3 L (3.9-5) g/dL Calcium panel 09/25/18 Range/Units 05:19 Calcium 8.4 (8.4-10.2) mg/dL Phosphorus 2.80 (2.5-4.5) mg/dL Albumin 3.3 L (3.9-5) g/dL Pituitary panel 09/25/18 Range/Units 05:19 Sodium 142 (137-145) mmol/L Potassium 3.5 L (3.6-5.0) mmol/L Chloride 103.8 (98-107) mmol/L Carbon Dioxide 27 (22-30) mmol/L BUN 7 L (9-20) mg/dL Creatinine 1.0 (0.8-1.5) mg/dL Glucose 87 (75-100) mg/dL Calcium 8.4 (8.4-10.2) mg/dL Adrenal panel 09/25/18 Range/Units 05:19 Sodium 142 (137-145) mmol/L Potassium 3.5 L (3.6-5.0) mmol/L Chloride 103.8 (98-107) mmol/L Carbon Dioxide 27 (22-30) mmol/L BUN 7 L (9-20) mg/dL Creatinine 1.0 (0.8-1.5) mg/dL Glucose 87 (75-100) mg/dL Calcium 8.4 (8.4-10.2) mg/dL Total Bilirubin 0.50 (0.1-1.2) mg/dL AST 19 (5-40) units/L ALT 15 (7-56) units/L Alkaline Phosphatase 45 (35-129) units/L Total Protein 6.3 (6.3-8.2) g/dL Albumin 3.3 L (3.9-5) g/dL
[2018-09-26] MEDS: MORPHINE IV PRN ×2 (03:04→11:14)
[2018-09-26] MEDS: APRESOLINE IV PRN ×2 (03:08→06:58)
[2018-09-26] MEDS ORDERED: APRESOLINE PO NR (08:14)
[2018-09-26] MEDS: HABITROL TD SCH (10:17)
[2018-09-26] MEDS: PEPCID IV SCH (10:17)
[2018-09-26 13:00] VITALS: BP 177/102
--- NOTE | 2018-09-26 13:11 | Discharge Summary ---
Providers - Providers Date of Admission: 09/24/18 08:57 Date of discharge: 09/26/18 Attending physician: SANGEETA RIVAS 09/24/18 08:43 Consult to Physician [CONS] Stat Comment: DR CANTU NOTIFIED [id number] Consulting Provider: GENE CANTU Physician Instructions: Reason For Exam: abd pain Primary care physician: [employer] Hospitalization Reason for admission: abdominal pain nausea vomiting Condition: Stable Pertinent studies: CT abdomen and pelvis without, and with contrast Hospital course: 43-year-old male with significant past medical history of hypertension not on any medications , substance abuse tobacco cocaine heroine , presented to the emergency room with abdominal pain 1 day duration, associated with nausea vomiting , reports that symptoms started after using cocaine and heroin. CT abdomen and pelvis no acute abnormalities noted Patient was evaluated by surgery, recommended symptomatic management and close observation Symptoms significantly improved, Diet was advanced Patient is being monitored to clear for discharge However this morning patient walked out of the hospital by himself Without informing the nurse or others health care providers Has reported to the security, could not be traced Patient's vital signs are stable today CBC and BMP from yesterday are within normal limits except for Mild hypokalemia which was corrected In walked out of the hospital[AGAINST MEDICAL ADVICE] Discharge diagnosis; --Abdominal pain; with nausea and vomiting CT abdomen no acute abnormalities noted Symptomatic management, surgery evaluated the patient Tolerated soft diet, medical management CT abdomen and pelvis with contrast, no acute abnormalities --Severe hypokalemia; replaced per protocol --Ongoing tobacco use; smoking cessation Nicotine patch as needed --Substance abuse; cocaine.Heroin Advised to quit recreational drug use Disposition: [id number] LEFT AGAINST MED ADVICE Time spent for discharge: 31 min Core Measure Documentation - Palliative Care Palliative Care/ Comfort Measures: Not Applicable - Core Measures Any of the following diagnoses?: none Exam - Physical Exam Narrative exam: Left AMA - Constitutional Vitals: Temp Pulse Resp BP Pulse Ox 98.5 F 89 20 177/102 98 09/26/18 11:56 09/26/18 11:56 09/26/18 11:56 09/26/18 11:56 09/26/18 11:56 Plan Additional Instructions: Patient left AGAINST MEDICAL ADVICE Follow up with: PRIMARY CARE, [Primary Care Provider] - 3-5 Days
--- NOTE | 2018-09-26 13:51 | Event Note ---
Date: 09/26/18 It appears as though the patient left AMA. A 2nd attempt had been made to obtain blood for the scheduled labs this morning. The nurse reports that he must have left after that point. No blood was able to be collected. His personal belongings were gone. It appears as though he left with the IV catheter in place. From the documentation of his vital signs and oral intake, I do not see any signs to suggest that he was clinically getting worse. Therefore, I will presume that his pain was secondary to his heroine and cocaine use. The fluid in the abdomen must also be related to that. No follow-up was established as he left before had a chance to discuss a plan with him.
[2018-09-26] MEDS ORDERED: APRESOLINE PO SCH (14:00)
== END 2018-09-26 15:00 | disposition left against medical advice (07) | DRG 894 ==
LOC: ED 05:49 → 3A 08:57
PROVIDERS: ADMIT Internal Medicine; ATTEND Internal Medicine
DX: F11.90 Opioid use, unspecified, uncomplicated (principal); R18.8 Other ascites; R10.9 Unspecified abdominal pain; I10 Essential (primary) hypertension; F14.90 Cocaine use, unspecified, uncomplicated; E87.6 Hypokalemia; F17.200 Nicotine dependence, unspecified, uncomplicated; F19.10 Other psychoactive substance abuse, uncomplicated; Z71.6 Tobacco abuse counseling; Z82.49 Family history of ischemic heart disease and other diseases of the circulatory system
CPT/HCPCS: 36415; 74176; 74177; 80053; 83690; 83735; 84100; 84132; 85025; 93005; 93010; 96361; 96374; 96375; G0378; J0360; J2270; J2405; J7030; Q9967